=== PATIENT | male | born 1960 | race Caucasian/White ===

== ENCOUNTER → 2016-08-20 | Outpatient (CLI) | payer MEDICAID ==
[~2016-08-20] MED LIST: ADVAIR 250/5028 PUFF IN; AUGMENTIN1 TA2 PO; CLONAZEPAM2 M2 PO; CLONAZEPAM2 MG PO; EC NAPROSYN375 MG PO; ETODOLAC400 MG PO; FLEXERIL10 MG PO; KEFLEX500 M1 PO; NEURONTIN400 MG PO; NEURONTIN600 MG PO; NORCO 325 MG-51 TAB PO; OXYCODONE15 MG PO; OXYCODONE30 MG PO; Oxycodone5 MG NG; Oxycodone5 MG PO; PERCOCET 10 MG1 EACH PO; PERCOCET 325 MG1 TA3 PO; PREDNISONE 20MG20 MG PO; VENTOLIN H0.09 MG/AC IH; VOLTAREN100 GM TP; ZANAFLEX4 M1 PO
[2016-08-20 09:53] LABS: AMPHETAMINES/METAMPHETAMINES NEGATIVE ng/mL (<1000)
[2016-08-20 15:14] LABS: HEMOGLOBIN 15.4 g/dL (14.1-18.0); LYMPH # 1.3 K/mm3 (0.7-4.5); LYMPH % 32.2 % (10-50)
[2016-08-20 15:48] LABS: BUN 13 mg/dL (7-18)
[2016-08-20 16:02] LABS: GFR (ESTIMATED) 87 ML/MIN (>60)
[2016-08-22 06:36] LABS: HIV Screen 4th Generation wRfx Non Reactive (Non Reactive)
[2016-08-22 08:40] LABS: HBsAg Screen Negative (Negative); Hep A Ab, IgM Negative (Negative); Hep B Core Ab, IgM Negative (Negative); Hep C Virus Ab 0.1 (0.0-0.9)
== END ==
LOC: LAB 09:17
PROVIDERS: Nurse Practitioner Family
DX: M67.911 Unspecified disorder of synovium and tendon, right shoulder (principal)
CPT/HCPCS: G0432

== ENCOUNTER 2017-03-15 19:12 | Emergency (ER) | payer MEDICAID ==
[~2017-03-15] VITALS: Ht 177.8 cm; Wt 84.8 kg
[2017-03-15] MEDS ORDERED: DULOXETINE60 MG PO (19:23)
--- NOTE | 2017-03-15 20:16 | Emergency Room Report ---
History of Present Illness Time Seen by Luda Presenting Problem in Triage Pt arrived:Walked Presenting Problem:LACERATION TO UPPER LEFT THIGH, STATES HE WAS SAWING WOOD, CHAIN SAW KICKED BACK AND CUT INTO LEFT THIGH. 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 N Clinical Suspician of Infection? N Mental Status: 1 - Regular (Normal Baseline) Sepsis Risk:Low Sepsis Risk Have you (or family members/close friends) recently traveled outside the [place]? N If Yes, where/when: Have you had exposure to infectious disease within the past month? N TB? Other? Specify: Chainsaw lacerations to left thigh sustained just BUSINESS ANALYTICS ANALYST; bleeding controlled on arrival, no weakness or numbness. ALLERGIES Coded Allergies: No Known Allergies (03/14/16) Home Medications Active Scripts Naproxen (EC-Naprosyn) 375 MG PO BID #60 ECT Prov: 07/14/16 Diclofenac Sodium (Voltaren) 2 GM TP QIDP PRN shoulder pain #100 GM Prov: 07/14/16 Reported Medications ALBUTEROL (Ventolin Hfa) 2 PUFFS IH Q4HP PRN SOB FLUTICASONE/SALMETEROL (Advair 250-50 Diskus) 1 PUFF IN BID Clonazepam (Clonazepam 2MG) 2 MG PO TID DULOXETINE HCL (Duloxetine) 60 MG PO BID #60 History Medical History General CAD? No Angina: No [place]: No Hypertension? No Hyperlipidemia? No CHF? No DVT? No PE? No COPD? Yes Asthma? No Anemia? No GERD? No Gastric ulcers? No GI Bleed? No Hernia? No Thyroid Problems? No Hypothyroidism? No CVA? No Seizures? No Diabetes? No End Stage Renal Disease? No UTI? No Stones? No BPH? No GB Disease: Yes Nephritic Syndrome? No Asplenia? No Hepatitis? No Sickle Cell Disease? No Arthritis? Yes Migraines? No Cataracts? No Glaucoma? No MRSA? No HIV? No TB? No Anxiety? Yes Depression? Yes Cancer? No More? Yes Additional hx: CHRONIC NECK/BACK PAIN LEG PAIN Immunization Hx DT/Tetanus 06/05/12 Surgical Hx Previous Surgery?Y [place] ORAL SURGERY Social History Smoking Hx Smoker: Current Every Day Smoker Tobacco: Yes Type Cigarettes Packs/day < 1 Pack Alcohol Alcohol: No Review of Systems All Other Systems Reviewed and Negative Skin see HPI Physical Exam Vital Signs Vital Signs Date Time Temp Pulse Resp B/P Pulse O2 O2 Flow FiO2 Ox Delivery Rate 03/15 2005 98.4 80 20 127/81 93 03/15 1915 98.2 87 14 169/97 98 General Appearance normal appearance, WD/WN, no apparent distress Eye Exam - bilateral eye normal exam, bilateral eye PERRL, bilateral eye EOMI Neck normal inspection, non-tender, supple, full range of motion Respiratory Status Yes: trachea midline. No: respiratory distress. Cardiovascular no peripheral edema, normal peripheral pulses Extremities non-tender (DP and PT pulses full), normal range of motion, normal capillary refill, Jagged lacerations x 2, 3.5 cm each, minor debris noted, no tendon or bone exposure, bleeding well controlled. Laterally has a 1 cm minor abrasion, also jagged, epidermal layer only. Strength 5 Upper Ext (L), 5 Upper Ext (R), 5 Lower Ext (L), 5 Lower Ext (R) Neurologic alert, normal exam, no motor/sensory deficits, oriented x 3 Glascow Coma Scale Glascow Coma Scale Response Value EYE response: 4 Spontaneously 4 MOTOR response: 6 OBEYS 6 VERBAL response: 5 Oriented & Converses 5 Total 15 Skin intact (see above; limb well perfused) Medical Decision Making LABS/Meds/Orders Pt receiving controlled substance in ED? No Results/Orders Current Medication Orders Sig/Stas Start time Last Medication Dose Route Stop Time Status Admin Diphtheria/Pertussis/ 0.5 ML ONCE ONE 03/15 2015 AC Tetanus Vacc IM 03/15 2016 Lidocaine/Epinephrine 0 .STK-MED ONE 03/15 1920 DC .ROUTE Orders Procedure Date/time Status WOUND CARE PER NURSE 03/15 1948 Active GEN NSG/PT REQ (NOT FOR MEDS!) 03/15 1948 Active Procedures Laceration/Wound Repair Laceration/Wound Repair Risks/benefits discussed with pt/guardian? Yes Tetanus status up to date (updated today) Wound Location thigh Wound Length (cm) 8 Wound's Depth, Shape sucutaneous tissue Wound Explored foreign body removed (minor debris removed,irrigated) Risk of retained FB explained to pt/guardian? Yes Irrigated w/ Saline (ccs) 50 Wound Prep Hibiclens Anesthesia Lidocaine w/Epi Volume Anesthetic (ccs) 10 Wound Debrided none Wound Repaired With sutures Suture Size/Type 4:0, Ethilon Layer Closure Yes Deep Layer Suture Size/Type 3:0, Vicryl Total Number Sutures 12 Sterile Dressing Applied Yes Splint Applied No Departure Departure Time of Disposition 2013 Disposition DC Home or Self Care(routine) Clinical Impression Primary Impression: Thigh laceration Qualifiers: Encounter type: initial encounter Laterality: left Qualified Code: S71.112A - Laceration without foreign body, left thigh, initial encounter Condition STABLE Referrals Isidro MORGAN,Piter Noble (Family) Patient Instructions Laceration Repair Additional Instructions Wound check in one to two days, Dr. Felix, and sutures removed one week, also Dr. Felix; watch for infection. Discharge Counseling Counseled pt/family regarding diagnosis, test results, home care ED Critical Care Critical Care No at [facility]
[2017-03-15 20:34] VITALS: BP 127/81
== END 2017-03-15 20:35 | disposition home or self-care (01) ==
LOC: ER 19:12
PROC: 0JQM0ZZ Repair Left Upper Leg Subcutaneous Tissue and Fascia, Open Approach (ICD-10-PCS; principal; 2017-03-15)
DX: S71.112A Laceration without foreign body, left thigh, initial encounter (principal); Z23 Encounter for immunization; F17.210 Nicotine dependence, cigarettes, uncomplicated; J44.9 Chronic obstructive pulmonary disease, unspecified; F41.8 Other specified anxiety disorders; W31.2XXA Contact with powered woodworking and forming machines, initial encounter; Y92.008 Other place in unspecified non-institutional (private) residence as the place of occurrence of the external cause